=== PATIENT | male | born 1965 | race Caucasian/White ===

== ENCOUNTER 2017-01-13 08:18 | Emergency (ER) | payer OTHER ==
[~2017-01-13] VITALS: Ht 172.7 cm; Wt 104.5 kg
[~2017-01-13 08:18] MED LIST: ATOR80TA PO; BUSP15TA3 PO; CHOL100043 PO; DICY20TA10 PO; GLPZ5T PO; LISI-567 PO; METF500T4 PO; METH5TAB3 PO; METO25TA6 PO; OMEP40CA36 PO; VENL150T3 PO
[2017-01-13 08:21] VITALS: BP 173/72; PULSE 96; RESP 14; O2SAT 100
--- NOTE | 2017-01-13 08:28 | ED.REPORT ---
HPI-General Illness Date of Service Jan 13, 2017 ED Provider: Wilmer Wise MD Patient is a 51 year old male with a hx of HTN, hyperlipidemia, and DM who presents to the ED via EMS s/p being found sleeping in his car at a gas station and per medics, acting confused. Upon interview, he has no medical complaints. He states "I am not confused. I am of a sound mind." He also reports that he does not want the officer that was on scene to enter his room because "he took something from my vehicle illegally without probable cause." He reports feeling fatigued and agitated in response to the situation. When asked if he would like medical care he states "I am not refusing care." He denies chest pain, SOB, headache, vomiting, fevers, dysuria, or any other symptoms. He takes metformin, Lipitor, Buspirone, Dicyclomine, Glipizide, Lisinopril, Metoprolol, omeprazole, Effexor and Lipoxide daily. He has not been on Methadone for 6 mo. He was on Methadone for his back pain. [facility]. He denies drug use or homelessness. He denies drug testing. Nursing Notes Stated Complaint: CONFUSION Chief Complaint: General Complaint Nursing Notes Reviewed: Yes Allergies: Coded Allergies: tramadol (Verified Allergy, Intermediate, ANGRY, 10/11/15) Scheduled Atorvastatin (Lipitor) 80 Mg Tablet 80 MG PO DAILY Buspirone (Buspirone) 15 Mg Tablet 15 MG PO TID Cholecalciferol (Vitamin D3) (Vitamin D) 1,000 Unit Tablet 2,000 UNIT PO DAILY Gabapentin (Gabapentin) 300 Mg Capsule 300 MG PO TID Glipizide (Glipizide) 5 Mg Tablet 5 MG PO BID Lisinopril (Lisinopril) 20 Mg Tablet 20 MG PO DAILY Metformin (Metformin) 500 Mg Tablet 2,000 MG PO QPM Methadone (Methadone) 5 Mg Tablet 2.5 MG PO BID Metoprolol Tartrate (Metoprolol Tartrate) 25 Mg Tablet 25 MG PO BID Omeprazole (Omeprazole) 40 Mg Capsule.dr 40 MG PO BID Venlafaxine ER (Venlafaxine ER) 150 Mg Tab.er.24 300 MG PO DAILY Scheduled PRN Dicyclomine (Dicyclomine) 20 Mg Tablet 20 MG PO QID PRN PRN For GI Cramps General Time Seen by MD: 08:27 Chief Complaint Other (Confusion ) Hx Obtained From: Patient Arrived By: Ambulance Onset Occurred: Just prior to arrival Severity: Current: No pain currently Severity: Maximum: No pain Past Medical History Past Medical History Carpal Tunnel HTN Hyperlipidemia DJD DM Chronic neck and back pain Restless leg syndrome Past Surgical History Carpal Tunnel surg Knee scope x2 Smoking History Smoker Current Status UNK Social History Drug Use: Denies drug use Ambulatory Status Independent Review of Systems Full Review of Systems Constitutional: Reports: Fatigue, Denies: Fever Respiratory: Denies: Shortness of breath Cardiovascular: Denies: Chest pain GI: Denies: Vomiting Male: Denies Dysuria Musculoskeletal: Reports: Back pain Neurologic: Denies: Confusion, Headache Psychiatric: Reports: Agitation Complete sys rev & neg: except as marked. Physical Exam Vital Signs Vital Signs Date Time Temp Pulse Resp B/P Pulse Ox O2 Delivery O2 Flow Rate FiO2 01/13/17 13:42 99 14 145/91 100 Room Air 01/13/17 11:01 84 21 94 Room Air 01/13/17 10:21 91 22 92 Room Air 01/13/17 08:21 36.8 96 14 173/72 100 Room Air Initial VS: Reviewed, Vital signs abnormal Head / Eyes: Atraumatic, Normocephalic Neck: Full range of motion Abdomen / GI: Soft, Non-tender General/Constitutional: Awake, Alert Behavior: Positive: Restless Respiratory / Chest: Breath sounds NL, Breath sounds = bilat, No respiratory distress Cardiovascular: Heart rate NL, Regular rhythm, Heart sounds NL, No gallop, No murmurs, No rubs Back: Full range of motion Skin: Color NL, Warm, Dry Neurologic: Oriented X3 Psychiatric: Not suicidal, Not homicidal, No hallucinations, Cognitive function NL, Thought content NL Abnormal Mood/Affect: Positive: Pressured speech multiple references to rights and legal concerns Interpretation & Diagnostics Lab Results Interpretation Result Diagram: 01/13/17 0900 01/13/17 0900 Test 01/13/17 09:00 01/13/17 09:15 White Blood Count 7.1th/mm3 (3.8-10.1) Red Blood Count 4.52mil/mm3 (4.40-5.80) Hemoglobin 13.8g/dL (13.8-17.2) Hematocrit 39.2% (41.0-50.0) Mean Corpuscular Volume 86.7fL (81-100) Mean Corpuscular Hemoglobin 30.5pg (27.0-35.0) Mean Corpuscular Hemoglobin Concent 35.2% (32.0-37.0) Red Cell Distribution Width 13.4% (12.3-15.4) Platelet Count 317bil/L (150-400) Neutrophils (%) (Auto) 65.8% (40-74) Lymphocytes (%) (Auto) 21.6% (14-46) Monocytes (%) (Auto) 9.9% (4-12) Eosinophils (%) (Auto) 1.8% (0-5) Basophils (%) (Auto) 0.8% (0-3) Sodium Level 139mEq/L (134-144) Potassium Level 3.7mEq/L (3.5-5.2) Chloride Level 101mEq/L (97-108) Carbon Dioxide Level 22mmol/L (18-29) Blood Urea Nitrogen 20mg/dL (6-24) Creatinine 1.03mg/dL (0.76-1.27) Estimat Glomerular Filtration Rate 81mL/min (>59) Glucose Level 197mg/dL (60-99) Calcium Level 9.5mg/dL (8.5-10.1) Magnesium Level 2.0mg/dL (1.6-2.6) Total Bilirubin 1.4mg/dL (0.0-1.2) Aspartate Amino Transf (AST/SGOT) 13U/L (0-50) Alanine Aminotransferase (ALT/SGPT) 13U/L (0-44) Alkaline Phosphatase 65U/L (25-150) Troponin T 0.010ug/L (0.0-0.011) Total Protein 7.3g/dL (6.4-8.4) Albumin 4.1g/dL (3.4-5.0) Hold Santiago Top Tube Received (Received) ECG Interpretation ECG Interpretation: Sinus rate 92 No abnormalities Time: 10:02 Interpreted by: ED physician Re-Eval/Medical Decision Med Decision/Clinical Course 51-year-old male brought in secondary to agitation. Had been sleeping in his car and became agitated when he encountered law enforcement. Was agitated here and somewhat focused on legal ischemic concerns and specifically refused to provide a urine drug screen. I did ask him specifically about whether or not he was on any illicit drug and he denied but once again refused to provide a urine specimen. Had some chronic back pain which she was given some gabapentin 4 and he slept in the department for a few hours. Did not endorse homicidal or suicidal ideation did not appear to have hallucinations exam and labs are otherwise reassuring. Time of Eval: 10:30 Patient Status: Condition improved Re-Evaluation/Progress Note: Rechecked pt who was sleeping soundly. His back pain is much better now. He arouses to stimuli but falls back asleep. Time of Eval: 13:36 Re-Evaluation/Progress Note: Rechecked pt. He arouses to stimuli and is able to stay awake. Discussed plan for discharge. Patient understands and agrees with plan. All questions addressed at this time. Counseled Regarding: Diagnosis, Lab results, Need for follow-up, When/why to return to ED Discharge & Departure Primary Impression: Agitation Additional Impression: Chronic back pain Back pain location: low back pain Back pain laterality: unspecified Sciatica presence: unspecified whether sciatica present Qualified Code: M54.5 - Low back pain Disposition: Home Discharge Condition All VS Reviewed: Yes Condition: Stable Additional Instructions: Emergency department evaluation today included interview, examination labs and ECG. No acute medical problem is identified today. After observation in the emergency department, we feel it is safe fir you to be discharged. May gabapentin 300 mg 3 times a day as a trial of pain medication for your back pain. Follow-up with the [facility], and discuss possible sleep apnea with them as we noted that you were snoring vigorously. Continue other previous home medications. Return emergency Department for any new or worsening symptoms. [facility] Scribe Attestation Portions of this note were transcribed by Edna Lutz. I, Dr. Wise personally performed the history, physical exam and medical decision-making; I reviewed and confirmed the accuracy of the information in the transcribed note. Signed by: Edna Lutz 01/13/2017, 1337 copies to: [facility] Wilmer Wise MD Jan 13, 2017 08:28 EDNA LUTZ Jan 13, 2017 08:42
[2017-01-13 09:14] LABS: BASOPHILS % (AUTO) 0.8 % (0-3); EOSINOPHILS % (AUTO) 1.8 % (0-5); MONOCYTES % (AUTO) 9.9 % (4-12); Mean Corpuscular Hemoglobin 30.5 pg (27.0-35.0); Mean Corpuscular Volume 86.7 fL (81-100); NEUTROPHILS % (AUTO) 65.8 % (40-74); Platelet Count 317 bil/L (150-400)
[2017-01-13 09:35] LABS: TROPONIN T 0.01 ug/L (0.0-0.011)
[2017-01-13 10:21] VITALS: PULSE 91; RESP 22; O2SAT 92
[2017-01-13 11:01] VITALS: PULSE 84; RESP 21; O2SAT 94
[2017-01-13] MEDS ORDERED: GABA-502 PO (13:35)
[2017-01-13 13:42] VITALS: BP 145/91; PULSE 99; RESP 14; O2SAT 100
== END 2017-01-13 13:43 | disposition home or self-care (01) ==
LOC: SED 08:18
DX: R45.1 Restlessness and agitation (principal); M54.5 Low back pain; G89.29 Other chronic pain; R53.83 Other fatigue; I10 Essential (primary) hypertension; E78.5 Hyperlipidemia, unspecified; E11.9 Type 2 diabetes mellitus without complications; Z79.84 Long term (current) use of oral hypoglycemic drugs; Z88.5 Allergy status to narcotic agent